=== PATIENT | female | born 1950 ===

== ENCOUNTER 2024-10-04 11:23 | Outpatient (CLI) | payer OTHER | END 2024-10-04 11:25 | disposition home or self-care (01) | LOC: MAMO-SONO 11:23 | PROVIDERS: ATTEND Internal Medicine | DX: N63.10 Unspecified lump in the right breast, unspecified quadrant (principal); N60.12 Diffuse cystic mastopathy of left breast; Z12.31 Encounter for screening mammogram for malignant neoplasm of breast ==